=== PATIENT | female | born 1945 | race Caucasian/White ===

== ENCOUNTER 2017-01-13 16:29 | Emergency (ER) | payer MEDICARE ==
[~2017-01-13] VITALS: Ht 157.5 cm; Wt 54.4 kg
[~2017-01-13 16:29] MED LIST: LEVO500T8 PO; ZOST1940 SQ
--- NOTE | 2017-01-13 17:00 | PHYS DOC ---
Adult General Chief Complaint Chief Complaint: EYE PROBLEMS HPI HPI Patient is a 71 year old female presents emergency room today with complaint of left eye pain and irritation after running into a tree limb this morning approximately 11 AM. Patient denies any additional injuries or concerns at this time. Patient states that she does not work contacts. She denies any history of chronic eye problems. She cannot remember when she got her last tetanus shot, but prefers to check with her primary care doctor before receiving a tetanus shot here today. Review of Systems Review of Systems Constitutional: Denies fever or chills [] Eyes: Denies change in visual acuity, redness, or eye pain [] HENT: Denies nasal congestion or sore throat [] Respiratory: Denies cough or shortness of breath [] Cardiovascular: No additional information not addressed in HPI [] GI: Denies abdominal pain, nausea, vomiting, bloody stools or diarrhea [] : Denies dysuria or hematuria [] Musculoskeletal: Denies back pain or joint pain [] Integument: Denies rash or skin lesions [] Neurologic: Denies headache, focal weakness or sensory changes [] Endocrine: Denies polyuria or polydipsia [] Current Medications Current Medications Current Medications Medications (Trade) Dose Ordered Sig/Esa Start Time Stop Time Status Last Admin Dose Admin Fluorescein Sodium (Ful-Sherrell) 1 strip 1X ONCE 01/13/17 17:30 01/13/17 17:31 Tetracaine HCl (Tetracaine) 2 drop 1X ONCE 01/13/17 17:30 01/13/17 17:31 Allergies Allergies Allergies Coded Allergies Type Severity Reaction Last Updated Verified codeine Allergy Intermediate 11/15/14 Yes penicillin V Allergy Intermediate 11/15/14 Yes sulfacetamide Allergy Intermediate 11/15/14 Yes Physical Exam Physical Exam Constitutional: Well developed, well nourished, mild distress, non-toxic appearance. HENT: Normocephalic, atraumatic, bilateral external ears normal, oropharynx moist, no oral exudates, nose normal. [] Eyes: Left periorbital region, lids and lashes are normal in appearance. Tear film is clear. There is mild subconjunctival injection. Anterior chamber is deep , clear and quiet. Pupils are equal round and reactive to light and accommodation. Extraocular motions are intact in 6 cardinal positions of gaze. Neck: Normal range of motion, no tenderness, supple, no stridor. [] Cardiovascular:Heart rate regular rhythm, no murmur [] Lungs & Thorax: Bilateral breath sounds clear to auscultation [] Abdomen: Bowel sounds normal, soft, no tenderness, no masses, no pulsatile masses. [] Skin: Warm, dry, no erythema, no rash. [] Back: No tenderness, no CVA tenderness. [] Extremities: No tenderness, no cyanosis, no clubbing, ROM intact, no edema. [] Neurologic: Alert and oriented X 3, normal motor function, normal sensory function, no focal deficits noted. [] Psychologic: Affect normal, judgement normal, mood normal. [] Current Patient Data Vital Signs Vital Signs Date Time Temp Pulse Resp B/P Pulse Ox O2 Delivery O2 Flow Rate FiO2 01/13/17 17:02 83 16 96 Room Air EKG EKG [] Radiology/Procedures Radiology/Procedures Procedure note: Two Tetracaine ophthalmic drops were placed in patient's left eye. Fluorescein strip was there is some lateral canthus of patient's eye and viewed with a Wood's lamp. There is a small corneal abrasion to 6 o'clock position of patient's cornea. There is no waterfall sign or dendritic lesions. Course & Med Decision Making Course & Med Decision Making Pertinent Labs and Imaging studies reviewed. (See chart for details) [] Dragon Disclaimer Dragon Disclaimer This electronic medical record was generated, in whole or in part, using a voice recognition dictation system. Departure Departure Impression: Primary Impression: Corneal abrasion Disposition: 01 HOME, SELF-CARE Condition: GOOD Referrals: TRI VASQUEZ MD (PCP) PHYLLIS SCHULER MD Patient Instructions: Eye - Corneal Abrasion, [id number] Additional Instructions: 1. Take the medication as prescribed. 2. Review the discharge instructions provided for reasons to return to the emergency department. 3. Call the hall supervisor number for evaluation if any questions or concerns. 4. Contact Dr. Vasquez's office tomorrow to ascertain your tetanus status. If it is been longer than 5 years, we recommend the ED receive a tetanus shot. Scripts Hydrocodone/Apap 5-325 (Venus 5-325 Tablet)1 Each Tablet1-2 Tab PO Q4-6HRS #15 TAB Prov:LAURA KOEHLER 01/13/17 LAURA KOEHLER Jan 13, 2017 17:00
[2017-01-13 17:02] VITALS: BP 126/64
[2017-01-13] MEDS ORDERED: HYDR-971 PO (17:28)
[2017-01-13] MEDS ORDERED: TETRACAINE 0.5% OPHTH SOLUTION 4ML BOTTLE. OS ONE (17:30)
[2017-01-13] MEDS ORDERED: FLUORESCEIN OPHTH TEST STRIP. OS ONE (17:30)
== END 2017-01-13 17:35 | disposition home or self-care (01) ==
LOC: ER 16:29
DX: S05.02XA Injury of conjunctiva and corneal abrasion without foreign body, left eye, initial encounter (principal); Z88.5 Allergy status to narcotic agent; Z88.2 Allergy status to sulfonamides; Z88.0 Allergy status to penicillin; W22.8XXA Striking against or struck by other objects, initial encounter; Y93.89 Activity, other specified; Y92.89 Other specified places as the place of occurrence of the external cause; Y99.8 Other external cause status
CPT/HCPCS: 99283

== ENCOUNTER → 2017-07-23 | Outpatient (CLI) | payer MEDICARE ==
[~2017-07-23] MED LIST changes: +HYDR-971 PO
--- NOTE | 2017-07-23 10:31 | KCIC ---
Indication: Osteopenia. Comparison is made with prior exam from 03/25/2015. The bone mineral density of the lumbar spine L1-L4 is 0.870 with a T score of -1.6. This compares with prior exam of 0.815 and -2.1. The bone mineral density of the left hip is 0.650 with a T score of -2.4. This compares with 0.646 and -2.4 on prior. IMPRESSION: Osteopenia of the lumbar spine and left hip. Electronically signed by: Martínez Olivares MD (07/23/2017 10:27 AM) [id number]
--- NOTE | 2017-07-23 11:27 | KCIC ---
Examination: CT chest without contrast HISTORY: History of follow-up lung nodules, history of smoking COMPARISON: 04/05/2016 Technique: Axial CT images of the chest were performed without contrast. Coronal and sagittal reformats are performed Exposure: One or more of the following individualized dose reduction techniques were utilized for this examination: 1. Automated exposure control 2. Adjustment of the mA and/or kV according to patient size 3. Use of iterative reconstruction technique FINDINGS: The visualized thyroid gland grossly appears unremarkable. Mild aortic atherosclerosis. The ascending aorta measures 3.3 cm in transverse dimension. No evidence of pericardial effusion. Calcified granuloma identified in the posterior right upper lobe of the lung grossly similar to prior exam. There are 2 pleural-based nodules measuring 7 cm in 6 cm in the right middle lobe of the lung grossly similar to prior exam. 6 mm right lower lobe pulmonary nodule, left lingular subpleural pulmonary nodule measuring 3 mm, 5 mm left lower lobe pulmonary nodule, and another 5 mm pulmonary nodule in the left lower lobe of the lung grossly similar to prior exam. There is mild nodularity along the left major fissure similar to prior exam. Left upper lobe pulmonary nodule measuring 4 mm grossly similar to prior exam. Centrilobular and paraseptal emphysematous changes identified in the bilateral lungs again identified. Small prominent mediastinal lymph node grossly similar to prior exam. The visualized noncontrasted liver, spleen, adrenals grossly appears unremarkable. Bilateral breast prosthesis is identified. Old bilateral L1 pedicle fractures grossly unchanged. IMPRESSION: 1. Stable appearing bilateral pulmonary nodules. 2. Bilateral emphysematous changes identified in the lungs. Electronically signed by: Yony Deras MD (07/23/2017 11:24 AM) [id number]
== END | disposition home or self-care (01) ==
LOC: KCIC CT 09:37
PROVIDERS: ATTEND Family Medicine
DX: M85.80 Other specified disorders of bone density and structure, unspecified site (principal); R91.8 Other nonspecific abnormal finding of lung field; Z87.891 Personal history of nicotine dependence; J43.8 Other emphysema; M81.0 Age-related osteoporosis without current pathological fracture
CPT/HCPCS: 71250; 77080

== ENCOUNTER → 2018-09-15 | Outpatient (CLI) | payer MEDICARE ==
--- NOTE | 2018-09-15 10:16 | KCIC ---
3 view left knee 09/15/2018 CLINICAL INDICATION: Acute pain of the left knee, difficulty walking. COMPARISON: None. FINDINGS: Diffuse bony demineralization. No acute fracture or traumatic malalignment. There is a smoothly marginated calcific density posterior to the medial tibial plateau, and may be sequela of old injury. Mild medial lateral joint space narrowing with minimal osteophytosis. Mild to moderate patellofemoral osteophytosis. No significant knee joint effusion. IMPRESSION: 1. No acute osseous abnormality. 2. Mild tricompartment degenerative changes, as detailed above. Electronically signed by: Rosendo Andrade MD (09/15/2018 10:13 AM) [id number]
--- NOTE | 2018-09-15 10:30 | KCIC ---
CT chest without contrast 09/15/2018 CLINICAL INDICATION: Pulmonary nodule follow-up COMPARISON: CT chest 07/23/2017, 04/05/2016, 12/01/2014 TECHNIQUE: Multiple CT images of the chest were obtained without contrast. *One or more of the following individualized dose reduction techniques were utilized for this examination: 1. Automated exposure control. 2. Adjustment of the mA and/or kV according to patient size. 3. Use of iterative reconstruction technique. FINDINGS: Heart size is normal without significant pericardial effusion. Thoracic aorta is normal in caliber with trace calcified atheromatous disease. Coronary artery calcifications are noted. Stable mildly prominent left axillary and mediastinal lymph nodes without pathologic and large by CT size criteria. Emergency Technician subcarinal lymph node measures 0.9 cm short axis series 2/image 71, previously 0.9 cm. Evaluation for axillary lymphadenopathy is limited due to lack of intravenous contrast. Bilateral subpectoral breast implants. Mild centrilobular pulmonary emphysema. No pleural effusion or pneumothorax. There are numerous stable bilateral calcified and noncalcified pulmonary nodules. Emergency Technician subpleural lateral left lower lobe noncalcified pulmonary nodule measures 0.4 cm series 2/image 129, previously 0.4 cm. Emergency Technician right lung nodule in the subpleural middle lobe measures 0.8 cm series 2/image 119, previously 0.8 cm. No new or enlarging noncalcified pulmonary nodules. Levoconvex thoracic scoliosis and multilevel moderate mid thoracic spondylosis. Limited images of the upper abdomen: Grossly unremarkable. IMPRESSION: 1. No significant change in numerous bilateral noncalcified pulmonary nodules since most remote examination available from 2014. 2. Mild pulmonary emphysema. Electronically signed by: Rosendo Andrade MD (09/15/2018 10:26 AM) [id number]
== END | disposition home or self-care (01) ==
LOC: KCIC CT 09:26
PROVIDERS: ATTEND Physician Assistant Medical
DX: M17.12 Unilateral primary osteoarthritis, left knee (principal); M25.762 Osteophyte, left knee; M47.894 Other spondylosis, thoracic region; J43.8 Other emphysema; M41.84 Other forms of scoliosis, thoracic region; I25.10 Atherosclerotic heart disease of native coronary artery without angina pectoris; Z87.891 Personal history of nicotine dependence
CPT/HCPCS: 71250; 73562

== ENCOUNTER → 2019-11-30 | Outpatient (CLI) | payer MEDICARE ==
[~2019-11-30] MED LIST changes: +HYDR-3164 PO; -HYDR-971 PO
--- NOTE | 2019-11-30 16:32 | KCIC ---
Examination: CT LOW DOSE LUNG SCREENING History: Greater than 40 pack-year smoking history Comparison/Correlation: 09/15/2018 CT chest without contrast, 04/05/2016 CT chest without contrast Findings: Axial images of the chest were obtained without contrast and low-dose protocol. Sagittal and coronal reformatted images were provided. Bilateral breast implants are present. No enlarged intrathoracic lymph nodes identified. Very small likely pericardial fluid collection noted about the right ventricle and apex no pleural effusion. Thoracic aortic contour is unremarkable. Emphysematous involvement of the lung molina noted. Pleural-based pulmonary nodules again are seen bilaterally and many of these are calcified. No new pulmonary nodules. Nodules measure less than 1.3 cm diameter. No significant change in size or morphology of the pulmonary nodules present. Degenerative disc space narrowing of the lower thoracic spine is notable. Levoconvex scoliosis of the thoracic spine noted. Impression: Lung-RADS category 2-benign. No significant change in multiple pulmonary nodules. No new nodules or suspicious infiltrates. Centrilobular emphysema. PQRS Compliance Statement: One or more of the following individualized dose reduction techniques were utilized for this examination: 1. Automated exposure control 2. Adjustment of the mA and/or kV according to patient size 3. Use of iterative reconstruction technique Electronically signed by: Zachery Fulton MD (11/30/2019 4:30 PM) [facility]
--- NOTE | 2019-11-30 16:48 | KCIC ---
Carotid artery Doppler History: , , , Technique: Realtime grayscale B-mode 2D sonographic images of the subclavian, vertebral and carotid arteries were performed with color flow, and spectral waveform analysis Doppler imaging. Comparison: No prior studies are available Stenosis calculations are derived from the elevated velocity criteria which are known to correlate with NASCET methodology. Findings: Mild left greater than right Scattered focal soft and calcific plaque is seen in the carotid arteries. Right vertebral: antegrade Left vertebral: antegrade Right subclavian: triphasic Left subclavian: triphasic Right Left Common Carotid Artery PSV 66 cm/second 69 cm/second Internal Carotid Artery PSV 68 cm/second 46 cm/second Internal Carotid Artery EDV 24 cm/second 16 cm/second External Carotid Artery PSV 77 cm/second 55 cm/second ICA/CCA ratio 1 0.66 Impression: No evidence of hemodynamically significant stenosis Electronically signed by: Rafael Marroquin MD (11/30/2019 4:45 PM) [facility]
== END | disposition home or self-care (01) ==
LOC: KCIC US 10:55
PROVIDERS: ATTEND Family Medicine
DX: Z12.2 Encounter for screening for malignant neoplasm of respiratory organs (principal); J43.2 Centrilobular emphysema; I65.23 Occlusion and stenosis of bilateral carotid arteries; M48.04 Spinal stenosis, thoracic region; M41.84 Other forms of scoliosis, thoracic region; R91.8 Other nonspecific abnormal finding of lung field; F17.210 Nicotine dependence, cigarettes, uncomplicated; Z98.82 Breast implant status
CPT/HCPCS: 93880; G0297

== ENCOUNTER → 2020-04-28 | Outpatient (CLI) | payer MEDICARE ==
[~2020-04-28] MED LIST changes: +IOHEXOL 240 MG/ML 50ML VIAL. PO ONE; +IOHEXOL 300 MG/ML 100ML VIAL. IV ONE
--- NOTE | 2020-04-28 15:51 | KCIC ---
Bilateral digital screening mammograms: Reason for examination: Routine screening. History of bilateral mastectomies with implant reconstruction years ago. No history of breast cancer. No previous exams for comparison. Interpretation is made with the benefit of CAD. The skin and nipples show no abnormalities. No abnormal lymph nodes are seen. Bilateral breast implants are present in the subpectoralis position. (Breast density: Category A.) There are no dominant masses, suspicious calcifications or architectural distortions. Impression: No evidence of malignancy. Recommend routine screening. BI-RADS Category 1: Negative. "Our facility is accredited by the [employer] Mammography Program." This patient's information has been entered into a reminder system for the patient to be notified with the results of her examination and a target date for the next mammogram. Electronically signed by: Kina Odell MD (04/28/2020 3:48 PM) [id number]
--- NOTE | 2020-04-28 17:40 | KCIC ---
PQRS Compliance Statement: One or more of the following individualized dose reduction techniques were utilized for this examination: 1. Automated exposure control 2. Adjustment of the mA and/or kV according to patient size 3. Use of iterative reconstruction technique CT CHEST ABD PELVIS W/CONTRAST Clinical Indication: Reason: WEIGHT LOSS, FATIGUE, NIGHT SWEATS / Comparison: CT chest without contrast November 30, 2019. Technique: Helical CT imaging of the chest, abdomen and pelvis is performed after 89 cc of Omnipaque 300 IV contrast. Oral contrast also administered. Findings: Left axillary lymph nodes are stable. Bilateral breast implants redemonstrated. Great vessels are normal caliber. No central pulmonary embolus. There is a 1.4 cm right hilar lymph node. There is no mediastinal adenopathy. Cardiac size is normal, trace pericardial effusion, unchanged. No pleural abnormality is seen. The central airways are patent. There is mild centrilobular and paraseptal emphysema. Mild atelectasis posterior right lower lobe. Linear scarring or chronic atelectasis in the lingula is stable. Bilateral pulmonary nodules are stable allowing for differences in slice thickness. Gallbladder not seen, presumably surgically absent. The liver, spleen, pancreas, adrenal glands, and abdominal aorta caliber are normal. Kidneys enhance symmetrically, no hydronephrosis. Stomach is mildly distended with oral contrast, otherwise normal. Most of the small bowel contains oral contrast. There is moderate colon stool volume. No colon wall thickening is identified. The appendix is normal. There is no abdominal adenopathy or free fluid. Calcified uterine fibroid measures 2 cm. There are prominent and enhancing periuterine veins. No pelvic free fluid. Urinary bladder is not well distended, no wall thickening is seen. There is a hyperdensity or focus of enhancement in the dependent urinary bladder measuring approximately 1.4 cm, image 25. This does not appear to be IV contrast. There is mild to moderate reverse S-shaped thoracolumbar scoliosis. Grade 1/2 anterolisthesis of L4 on L5. There is degenerative spondylosis of the thoracolumbar spine. Transitional lumbosacral anatomy on the left. IMPRESSION: 1. There is a small hyperdensity in the dependent urinary bladder. Primary concern is an enhancing mass. A collection of tiny bladder calculi or fungus ball or hematoma are other considerations. Further imaging workup could be performed with a CT pelvis without and with contrast with early and delayed imaging and prone imaging. 2. Trace pericardial effusion. 3. Mild emphysema. 4. Bilateral pulmonary nodules are stable. 5. Moderate colon stool volume. 6. Calcified uterine fibroid. Prominent enhancing periuterine veins, correlate for pelvic congestion syndrome. Electronically signed by: Sherman Hurst MD (04/28/2020 5:37 PM) [id number]
== END ==
LOC: KCIC MAMMO 14:34
PROVIDERS: ATTEND Family Medicine
DX: Z12.31 Encounter for screening mammogram for malignant neoplasm of breast (principal); R91.8 Other nonspecific abnormal finding of lung field; R63.4 Abnormal weight loss; R53.83 Other fatigue; Z90.13 Acquired absence of bilateral breasts and nipples; D25.9 Leiomyoma of uterus, unspecified; J43.9 Emphysema, unspecified
CPT/HCPCS: 71260; 74177; 77067; 82565; Q9966; Q9967

== ENCOUNTER → 2020-06-13 | Outpatient (CLI) | payer MEDICARE ==
[~2020-06-13] MED LIST changes: -IOHEXOL 240 MG/ML 50ML VIAL. PO ONE; -IOHEXOL 300 MG/ML 100ML VIAL. IV ONE
--- NOTE | 2020-06-13 17:09 | RAD ---
Limited pelvic sonogram Clinical indications: Bladder mass seen on recent CT study dated April 28, 2020. COMPARISON: CT study of the abdomen and pelvis dated April 28, 2020. FINDINGS: Sonography of the urinary bladder demonstrates a hyperechoic posterior intraluminal mass measuring 2.1 cm x 1.7 cm x 1.4 cm in size. This is seen along the floor. This would correspond to the CT finding. Color-flow is seen within it. IMPRESSION: Intraluminal mass of the floor of the urinary bladder which may represent a neoplasm or polyp. Electronically signed by: James Odonnell MD (06/13/2020 5:06 PM) [id number]
== END | disposition home or self-care (01) ==
LOC: US 15:47
PROVIDERS: ATTEND Family Medicine
DX: N32.89 Other specified disorders of bladder (principal)
CPT/HCPCS: 76857

== ENCOUNTER → 2020-08-10 | Outpatient (CLI) | payer MEDICARE ==
--- NOTE | 2020-08-10 12:18 | RAD ---
MR#: [id number] Date of Study: 08/10/2020 Ordering Physician: MARÍA FERNÁNDEZ, Referring Physician: MARÍA FERNÁNDEZ, Tech: Aby Isabel RDMS, RVT, RTR APPROVED REPORT Patient Location: OUT-PATIENT Laterality:Bilateral Indications Bruit Right Carotid Bruit Surgery/Intervention Endarterectomy: right Doppler Spectral Velocity Analysis Right Left pCCA 68/13 cm/spCCA 81/21 cm/s mCCA 68/16 cm/smCCA 77/17 cm/s dCCA 70/17 cm/sdCCA 76/21 cm/s Bulb 82/16 cm/sBulb 61/16 cm/s ECA 89/15 cm/sECA 73/14 cm/s pICA 97/28 cm/spICA 70/26 cm/s Shaw 74/21 cm/smICA 94/24 cm/s dICA 87/26 cm/sdICA 94/29 cm/s Vert. 51/14 cm/sVert. 48/13 cm/s ICA/CCA 1.39ICA/CCA 1.16 Findings Grayscale images of the bilateral common carotid arteries and external and internal carotid vessels d emonstrate mild to moderate diffuse plaque. Based on velocity criteria overall 0 to less than 50% stenosis in the internal carotid vessels. Norm al ICA to CCA ratios bilaterally. Bilateral vertebral velocities are antegrade. Critical Notification Critical Value: No <Conclusion> 1. No significant carotid occlusive disease bilaterally Signed by : Manuel Gil, Electronically Approved : 08/10/2020 12:18:36
== END | disposition home or self-care (01) ==
LOC: US 08:46
PROVIDERS: ATTEND Internal Medicine Cardiovascular Disease
DX: R09.89 Other specified symptoms and signs involving the circulatory and respiratory systems (principal); I65.23 Occlusion and stenosis of bilateral carotid arteries
CPT/HCPCS: 93880

== ENCOUNTER → 2021-11-09 | Outpatient (CLI) | payer MEDICARE ==
[~2021-11-09] MED LIST changes: -LEVO500T8 PO; +LEVO500T9 PO
--- NOTE | 2021-11-09 15:31 | KCIC ---
EXAM: CT CHEST WITHOUT CONTRAST (LDCT LUNG CANCER SCREENING). HISTORY: Risk factors for pulmonary malignancy. Cigarette smoking. TECHNIQUE: CT of the chest was performed without intravenous contrast using a low-dose lung screening protocol. Findings analysis is based on ACR Lung-RADS v1.1. *One or more of the following individual ized dose reduction techniques were utilized for this examination: 1. Automated exposure control. 2. Adjustment of the mA and/or kV according to patient size. 3. Use of iterative reconstruction technique. COMPARISON: 11/30/2019. FINDINGS: The heart is normal in size. There is a slight increased small pericardial effusion. There is calcification of the mitral valve annulus. There are implanted breast prostheses. There is moderat e to severe emphysema. There is biapical predominant pleural parenchymal scarring. There is a partially calcified pleural-based nodule measuring 1.2 cm within the posterior right lung apex, benign in appearance. There are additional smaller pleural-based nodules at the lung apices due to scarring. There is a 6 mm pleural-based nodule within the anterior right upper lobe likely due to subsegmental atelectasis or scarring. There are several nodules along the pleural fissures, largest of which measures 7 mm. These are likely fissural lymph nodes. There are 9 mm and 7 mm nodules abutti ng the pleura of the anterior right middle lobe with surrounding atelectasis or scarring. There is a 7 mm pleural-based nodule within the posterior superior right lower lobe. There is a 4 mm nodule within the lateral left upper lobe. There are 3 mm and 4 mm pleural-based nodu le within the medial and lateral lingula. There is an elongated 7 x 2 mm nodule within the anterior l eft upper lobe. There is a 3 mm nodule within the superior left lower lobe. There is a 9 mm irregular slightly spiculated nodule within the left lower lobe (series 6, image 187). There are 6 mm, 5 mm an d 4 mm nodules abutting the pleura of the lateral left lower lobe. There is a 6 mm nodule along the a nterior left lower lobe abutting the pleural fissure. There is a 4 mm nodule at the left lung base. There is no acute finding involving the upper abdomen. There are degenerative changes throughout the spine. There is thoracic kyphoscoliosis. There is no acute or suspicious osseous finding. RECOMMENDATION: 1. Multiple noncalcified bilateral pulmonary nodules measuring up to 9 mm[address] These are [address] able compared to the prior exam, with exception of interval increase in a slightly spiculated 9 mm no dule within the left lower lobe. The nearly year of stability of the majority of the lesion favors be nignity. However, given the size of the dominant nodules and increase in a nodule with suspicious mor phology within the left lower lobe, possibly chest CT in 3 months is recommended. Lung RADS category 4. 2. Emphysema with apical predominant pleural parenchymal scarring. 3. Stable slight increased small pericardial effusion. Electronically signed by: Osiris Stone MD (11/09/2021 3:29 PM) [id number]
== END ==
LOC: KCIC CT 13:28
PROVIDERS: ATTEND Internal Medicine
DX: Z12.2 Encounter for screening for malignant neoplasm of respiratory organs (principal); R91.8 Other nonspecific abnormal finding of lung field; J43.9 Emphysema, unspecified; J90 Pleural effusion, not elsewhere classified; I34.0 Nonrheumatic mitral (valve) insufficiency; M47.819 Spondylosis without myelopathy or radiculopathy, site unspecified; M41.84 Other forms of scoliosis, thoracic region; F17.210 Nicotine dependence, cigarettes, uncomplicated
CPT/HCPCS: 71271